=== PATIENT | female | born 2000 | race African-American/Black ===

== ENCOUNTER → 2020-09-30 | Outpatient (CLI) | payer OTHER ==
--- NOTE | 2020-09-30 13:42 | REP ---
INDICATION: LEFT BREAST TENDERNESS AND DISCHARGE/MASS. COMPARISON: None TECHNIQUE: Real-time sonographic evaluation of left breast performed. FINDINGS: Reportedly there is a palpable lump at the 3 o'clock position of the left breast. Heterogeneous fibroglandular tissue is seen in this region. No cystic or solid mass is seen. IMPRESSION: BIRADS/ACR category 1, negative ultrasound left breast. No cystic or solid mass at the site of the reported palpable abnormality in the region of 3 o'clock. RECOMMENDATION: Clinical follow-up. <Electronically signed by Daniel Albrecht > 09/30/20 [id number]
== END ==
LOC: M WHC 13:02
DX: R92.2 Inconclusive mammogram (principal); N64.4 Mastodynia